=== PATIENT | male | born 1980 | race Caucasian/White ===

== ENCOUNTER 2023-02-07 15:17 | Inpatient (IN) | payer OTHER ==
[2023-02-07 16:49] VITALS: BMI 22.5
[2023-02-07] MEDS ORDERED: ACETAMINOPHEN 325 MG TABLET (FP) PO PRN (21:24)
[2023-02-07] MEDS ORDERED: DICYCLOMINE HCL 10 MG CAPSULE PO PRN (21:24)
[2023-02-07] MEDS ORDERED: NICOTINE POLACRILEX 2 MG GUM BUC PRN (21:24)
[2023-02-07] MEDS ORDERED: P-EPHED 60MG/TRIPROLIDI 2.5MG TABLET PO PRN (21:24)
[2023-02-07] MEDS ORDERED: MAG HYDROX/AL HYDROX/SIMETH 30 ML UNIT-DOSE CUP PO PRN (21:24)
[2023-02-07] MEDS ORDERED: NALOXONE HCL 0.4 MG/ML VIAL IM PRN (21:24)
[2023-02-07] MEDS ORDERED: guaiFENesin 600 MG TABLET.ER (FP) PO PRN (21:24)
[2023-02-07] MEDS ORDERED: IBUPROFEN 400 MG TABLET (FP) PO PRN (21:24)
[2023-02-07] MEDS ORDERED: BENZOCAINE/MENTHOL (CHLORASEPTIC ) LOZENGE MM PRN (21:24)
[2023-02-07] MEDS ORDERED: BENZONATATE 200 MG CAPSULE PO PRN (21:24)
[2023-02-07] MEDS ORDERED: POLYETHYLENE GLYCOL (HEALTHYLAX) 3350 17 GM PACKET PO PRN (21:24)
[2023-02-07] MEDS ORDERED: BISMUTH SUBSALICYLATE 524 MG/30 ML PO PRN (21:24)
[2023-02-07] MEDS ORDERED: MAGNESIUM HYDROX 2400MG/30ML ORAL SUSPENSION 30 ML CUP PO PRN (21:24)
[2023-02-07] MEDS ORDERED: ONDANSETRON *ODT* 4 MG TABLET SL PRN (21:24)
[2023-02-07] MEDS ORDERED: LOPERAMIDE HCL 2 MG CAPSULE PO PRN (21:24)
[2023-02-07] MEDS ORDERED: NALOXONE HCL (KLOXXADO) 8 MG SPRAY NS PRN (21:24)
[2023-02-07] MEDS ORDERED: cloNIDine HCL 0.1 MG TABLET PO PRN (21:26)
[2023-02-07] MEDS ORDERED: methaDONE HCL 10 MG TABLET (FOR DETOX USE ONLY) PO ONE (21:26)
[2023-02-07] MEDS ORDERED: methaDONE HCL 10 MG TABLET (FOR DETOX USE ONLY) ONE (21:46)
[2023-02-07] MEDS ORDERED: MELATONIN 5 MG TABLETS ONE (22:01)
[2023-02-07] MEDS: MELATONIN 5 MG TABLETS PO SCH (22:03)
[2023-02-07] MEDS: METHOCARBAMOL 500 MG TABLET PO PRN (22:42)
[2023-02-07] MEDS: THIAMINE HCL 100 MG TABLET (FP) PO SCH (22:42)
[2023-02-07] MEDS: IBUPROFEN 600 MG TABLET (FP) PO PRN (22:42)
[2023-02-08] MEDS: AMOX TR/POT CLAV 500MG/125MG TABLETS (FP) PO SCH ×4 (00:02→22:54)
[2023-02-08] MEDS: hydrOXYzine PAMOATE 25 MG CAPSULE (FP) PO PRN (05:34)
[2023-02-08] MEDS: METHOCARBAMOL 500 MG TABLET PO PRN (09:51)
[2023-02-08] MEDS: NICOTINE 14 MG/24 HOURS TOPICAL PATCH TD SCH (09:51)
[2023-02-08] MEDS: PRENATAL VITAMINS W/ FOLIC ACID TABLET (FP) PO SCH (09:51)
[2023-02-08] MEDS ORDERED: ONDANSETRON *ODT* 4 MG TABLET SL ONE (10:11)
[2023-02-08 10:41] LABS: HEMATOCRIT 38.6 % (35.4-49); HEMOGLOBIN 12.4 GM/dL (11.7-16.9); MCH 27.1 pg (25.7-33.7); MCHC 32.2 g/dl (32.0-35.9); MEAN CELL VOLUME 84.4 fl (80-96); PLATELET COUNT 305 10^3/uL (134-434); RBC 4.58 M/mm3 (4.00-5.60); RDW 14.1 % (11.9-15.9); WHITE BLOOD COUNT 6.3 K/mm3 (4.0-10.0)
[2023-02-08 10:49] LABS: POTASSIUM 4.4 mmol/L (3.5-5.1)
[2023-02-08 11:03] LABS: ALBUMIN 3.1 g/dl (3.4-5.0); CALCIUM 8.2 mg/dL (8.5-10.1)
[2023-02-08 11:04] LABS: BLOOD UREA NITROGEN 12.8 mg/dL (7-18)
[2023-02-08 11:07] LABS: CREATININE 0.9 mg/dL (0.55-1.3)
[2023-02-08 11:08] LABS: BILIRUBIN,TOTAL 0.2 mg/dL (0.2-1); TOT PROT 6.3 g/dl (6.4-8.2)
[2023-02-08] MEDS: diazePAM 5 MG TABLET PO PRN ×2 (11:59→22:07)
[2023-02-08] MEDS: THIAMINE HCL 100 MG TABLET (FP) PO SCH (22:07)
[2023-02-08] MEDS: MELATONIN 5 MG TABLETS PO SCH (22:07)
[2023-02-09] MEDS: METHOCARBAMOL 500 MG TABLET PO PRN ×2 (01:31→10:18)
[2023-02-09] MEDS: hydrOXYzine PAMOATE 25 MG CAPSULE (FP) PO PRN ×3 (01:31→22:09)
[2023-02-09] MEDS: AMOX TR/POT CLAV 500MG/125MG TABLETS (FP) PO SCH ×3 (08:07→22:09)
[2023-02-09] MEDS ORDERED: methaDONE HCL 10 MG TABLET (FOR DETOX USE ONLY) PO ONE (10:00)
[2023-02-09] MEDS: PRENATAL VITAMINS W/ FOLIC ACID TABLET (FP) PO SCH (10:18)
[2023-02-09] MEDS: NICOTINE 14 MG/24 HOURS TOPICAL PATCH TD SCH (10:20)
[2023-02-09] MEDS: IBUPROFEN 600 MG TABLET (FP) PO PRN (12:07)
[2023-02-09] MEDS: OFLOXACIN 0.3% OPHTHALMIC SOLUTION 5 ML BOTTLE OU SCH ×3 (14:40→22:09)
[2023-02-09] MEDS: THIAMINE HCL 100 MG TABLET (FP) PO SCH (22:08)
[2023-02-09] MEDS: MELATONIN 5 MG TABLETS PO SCH (22:09)
[2023-02-10] MEDS: IBUPROFEN 600 MG TABLET (FP) PO PRN (04:37)
[2023-02-10] MEDS: METHOCARBAMOL 500 MG TABLET PO PRN ×3 (04:37→22:25)
[2023-02-10] MEDS: AMOX TR/POT CLAV 500MG/125MG TABLETS (FP) PO SCH ×3 (05:17→22:25)
[2023-02-10] MEDS: PRENATAL VITAMINS W/ FOLIC ACID TABLET (FP) PO SCH (10:17)
[2023-02-10] MEDS: hydrOXYzine PAMOATE 25 MG CAPSULE (FP) PO PRN ×2 (10:18→22:25)
[2023-02-10] MEDS: OFLOXACIN 0.3% OPHTHALMIC SOLUTION 5 ML BOTTLE OU SCH ×4 (10:19→22:25)
[2023-02-10] MEDS: NICOTINE 14 MG/24 HOURS TOPICAL PATCH TD SCH (10:19)
[2023-02-10] MEDS: THIAMINE HCL 100 MG TABLET (FP) PO SCH (22:25)
[2023-02-10] MEDS: MELATONIN 5 MG TABLETS PO SCH (22:25)
[2023-02-11] MEDS: AMOX TR/POT CLAV 500MG/125MG TABLETS (FP) PO SCH ×3 (05:06→22:50)
[2023-02-11] MEDS: IBUPROFEN 600 MG TABLET (FP) PO PRN (05:06)
[2023-02-11] MEDS: hydrOXYzine PAMOATE 25 MG CAPSULE (FP) PO PRN ×2 (05:06→22:50)
[2023-02-11] MEDS: METHOCARBAMOL 500 MG TABLET PO PRN ×2 (05:06→22:50)
[2023-02-11] MEDS ORDERED: methaDONE HCL 10 MG TABLET (FOR DETOX USE ONLY) PO ONE (10:00)
[2023-02-11] MEDS: PRENATAL VITAMINS W/ FOLIC ACID TABLET (FP) PO SCH (10:03)
[2023-02-11] MEDS: NICOTINE 14 MG/24 HOURS TOPICAL PATCH TD SCH (10:04)
[2023-02-11] MEDS: OFLOXACIN 0.3% OPHTHALMIC SOLUTION 5 ML BOTTLE OU SCH ×4 (10:05→22:50)
[2023-02-11 21:19] VITALS: RESP 17
[2023-02-11] MEDS: MELATONIN 5 MG TABLETS PO SCH (22:51)
[2023-02-11] MEDS: THIAMINE HCL 100 MG TABLET (FP) PO SCH (22:51)
[2023-02-12] MEDS: AMOX TR/POT CLAV 500MG/125MG TABLETS (FP) PO SCH (05:23)
[2023-02-12] MEDS: IBUPROFEN 600 MG TABLET (FP) PO PRN (05:24)
[2023-02-12 06:09] VITALS: BP 131/78; PULSE 68; TEMP 97.5
== END 2023-02-12 09:45 | disposition home or self-care (01) | DRG 773 ==
LOC: YASAS 15:17 → Y6N 21:45
PROVIDERS: ADMIT Allergy & Immunology; ATTEND Surgery
PROC: HZ2ZZZZ Detoxification Services for Substance Abuse Treatment (ICD-10-PCS; principal; 2023-02-07)
DX: F11.23 Opioid dependence with withdrawal (principal); F14.20 Cocaine dependence, uncomplicated; F17.210 Nicotine dependence, cigarettes, uncomplicated; R73.03 Prediabetes
CPT/HCPCS: 36415; 80053; 85027; 86780; 87635